=== PATIENT | male | born 1945 | race Two or more races ===

== ENCOUNTER → 2017-03-12 | Emergency (ER) | payer OTHER ==
[~2017-03-12] VITALS: Ht 182.9 cm; Wt 90.7 kg
[~2017-03-12] MED LIST: CASODEX50 MG PO; CHLOROTHIAZIDE500 MG PO; CLARINEX5 MG/TAB PO; RELAGESIC 5001 EACH PO; TESSALON PERLE100 MG PO; TUSSI PRES-B L120 M1 PO; ZIAC 2.5-6.25 M1 TAB PO; ZITHROMAX TRI-500 MG PO
== END | disposition home or self-care (01) ==
LOC: ER 08:41
DX: M94.0 Chondrocostal junction syndrome [Tietze] (principal)

== ENCOUNTER 2017-12-20 08:54 | Outpatient (CLI) | payer OTHER | END 2017-12-20 09:21 | disposition home or self-care (01) | LOC: RAD 08:54 | DX: N20.0 Calculus of kidney (principal); C61 Malignant neoplasm of prostate ==

== ENCOUNTER 2017-12-25 09:10 | Outpatient (CLI) | payer OTHER | END 2017-12-25 09:18 | disposition home or self-care (01) | LOC: NUCLEAR 09:10 | DX: C61 Malignant neoplasm of prostate (principal) | CPT/HCPCS: 78306; A9503 ==

== ENCOUNTER 2018-02-13 08:12 | Outpatient (CLI) | payer OTHER | END 2018-02-13 08:41 | disposition home or self-care (01) | LOC: LAB 08:12 | DX: C61 Malignant neoplasm of prostate (principal); C41.9 Malignant neoplasm of bone and articular cartilage, unspecified; R73.01 Impaired fasting glucose; E78.2 Mixed hyperlipidemia; I11.9 Hypertensive heart disease without heart failure; Z13.1 Encounter for screening for diabetes mellitus; E55.9 Vitamin D deficiency, unspecified; E56.8 Deficiency of other vitamins ==

== ENCOUNTER 2018-02-14 13:34 | Outpatient (CLI) | payer OTHER | END 2018-02-14 14:18 | disposition home or self-care (01) | LOC: NUCLEAR 13:34 | DX: C61 Malignant neoplasm of prostate (principal); M81.0 Age-related osteoporosis without current pathological fracture ==

== ENCOUNTER 2018-04-23 08:50 | Outpatient (CLI) | payer OTHER | END 2018-04-23 09:00 | disposition home or self-care (01) | LOC: SONOGRAMA 08:50 | DX: R10.11 Right upper quadrant pain (principal) ==

== ENCOUNTER 2018-05-12 07:47 | Outpatient (CLI) | payer OTHER | END 2018-05-12 07:55 | disposition home or self-care (01) | LOC: TOM 07:47 | DX: R10.11 Right upper quadrant pain (principal) ==

== ENCOUNTER 2018-05-16 09:07 | Outpatient (CLI) | payer OTHER | END 2018-05-16 13:05 | disposition home or self-care (01) | LOC: LAB 09:07 | DX: C41.9 Malignant neoplasm of bone and articular cartilage, unspecified (principal); I11.9 Hypertensive heart disease without heart failure; E78.49 Other hyperlipidemia ==

== ENCOUNTER 2019-06-25 09:55 | Emergency (ER) | payer OTHER ==
[~2019-06-25] VITALS: Ht 182.9 cm; Wt 90.7 kg
[2019-06-25] MEDS ORDERED: CANDESARTAN CILE8 M1 PO (10:11)
[2019-06-25] MEDS ORDERED: AVAPRO75 MG PO (10:11)
[2019-06-25] MEDS ORDERED: POTASSIUM CITR15 MEQ (10:12)
[2019-06-25] MEDS ORDERED: CENTRUM SILVER1 EAC4 PO (10:12)
[2019-06-25] MEDS ORDERED: CITRACAL + D M1 EACH (10:13)
== END 2019-06-25 11:00 | disposition home or self-care (01) ==
LOC: ER 09:55
DX: S51.822A Laceration with foreign body of left forearm, initial encounter (principal); W22.09XA Striking against other stationary object, initial encounter; Y93.01 Activity, walking, marching and hiking; Y92.018 Other place in single-family (private) house as the place of occurrence of the external cause; Y99.8 Other external cause status

== ENCOUNTER 2019-06-29 11:09 | Emergency (ER) | payer OTHER ==
[~2019-06-29] VITALS: Ht 182.9 cm; Wt 88.5 kg
[~2019-06-29 11:09] MED LIST changes: +AVAPRO75 MG PO; +CANDESARTAN CILE8 M1 PO; +CENTRUM SILVER1 EAC4 PO; +CITRACAL + D M1 EACH; +POTASSIUM CITR15 MEQ
== END 2019-06-29 11:46 | disposition home or self-care (01) ==
LOC: ER 11:09
DX: T81.89XA Other complications of procedures, not elsewhere classified, initial encounter (principal); S51.82 Laceration with foreign body of forearm; W26.8XXS Contact with other sharp object(s), not elsewhere classified, sequela

== ENCOUNTER 2019-07-07 09:52 | Emergency (ER) | payer OTHER ==
[~2019-07-07] VITALS: Ht 182.9 cm; Wt 90.7 kg
== END 2019-07-07 10:48 | disposition home or self-care (01) ==
LOC: ER 09:52
DX: Z48.02 Encounter for removal of sutures (principal)

== ENCOUNTER 2019-11-12 09:46 | Outpatient (CLI) | payer OTHER | END 2019-11-12 09:53 | disposition home or self-care (01) | LOC: RAD 09:46 | PROVIDERS: ATTEND Physical Medicine & Rehabilitation | DX: S62.301A Unspecified fracture of second metacarpal bone, left hand, initial encounter for closed fracture (principal) ==

== ENCOUNTER 2019-12-21 10:34 | Emergency (ER) | payer OTHER ==
[~2019-12-21] VITALS: Ht 182.9 cm; Wt 90.7 kg
[2019-12-21] MEDS ORDERED: CANDESARTAN CILE8 MG PO (12:36)
[2019-12-21] MEDS ORDERED: CANDESARTAN CILE8 MG (12:36)
[2019-12-21] MEDS ORDERED: SKELAXIN800 MG PO (16:15)
[2019-12-21] MEDS ORDERED: ULTRACET PO (16:15)
== END 2019-12-21 16:53 | disposition home or self-care (01) ==
LOC: ER 10:34
DX: S62.33 Displaced fracture of neck of other metacarpal bone (principal); S40.011S Contusion of right shoulder, sequela; X58.XXXS Exposure to other specified factors, sequela

== ENCOUNTER 2019-12-23 12:00 | Outpatient (CLI) | payer OTHER ==
[~2019-12-23 12:00] MED LIST changes: +CANDESARTAN CILE8 MG; +CANDESARTAN CILE8 MG PO; +SKELAXIN800 MG PO; +ULTRACET PO
== END 2019-12-23 12:12 | disposition home or self-care (01) ==
LOC: RAD 12:00
PROVIDERS: ATTEND Orthopaedic Surgery
DX: M54.5 Low back pain (principal); M54.6 Pain in thoracic spine

== ENCOUNTER → 2019-12-25 10:01 | Outpatient (CLI) | payer OTHER | END | disposition home or self-care (01) | LOC: LAB 10:01 | PROVIDERS: ATTEND Orthopaedic Surgery | DX: E88.89 Other specified metabolic disorders (principal); D64.89 Other specified anemias; M06.4 Inflammatory polyarthropathy; E55.9 Vitamin D deficiency, unspecified; M85.88 Other specified disorders of bone density and structure, other site ==

== ENCOUNTER 2019-12-28 08:47 | Outpatient (CLI) | payer OTHER | END 2019-12-28 09:08 | disposition home or self-care (01) | LOC: NUCLEAR 08:47 | PROVIDERS: ATTEND Orthopaedic Surgery | DX: M81.0 Age-related osteoporosis without current pathological fracture (principal); M54.5 Low back pain ==

== ENCOUNTER 2019-12-30 09:36 | Outpatient (CLI) | payer OTHER | END 2019-12-30 09:42 | disposition home or self-care (01) | LOC: LAB 09:36 | PROVIDERS: ATTEND Orthopaedic Surgery | DX: E56.1 Deficiency of vitamin K (principal); M06.4 Inflammatory polyarthropathy; D64.89 Other specified anemias; N18.1 Chronic kidney disease, stage 1; C61 Malignant neoplasm of prostate; E55.9 Vitamin D deficiency, unspecified; M81.0 Age-related osteoporosis without current pathological fracture; M10.9 Gout, unspecified; D63.8 Anemia in other chronic diseases classified elsewhere ==

== ENCOUNTER 2019-12-30 11:26 | Outpatient (CLI) | payer OTHER | END 2019-12-30 11:33 | disposition home or self-care (01) | LOC: RAD 11:26 | PROVIDERS: ATTEND Orthopaedic Surgery | DX: M89.8X4 Other specified disorders of bone, hand (principal); M79.642 Pain in left hand; M79.641 Pain in right hand; M25.542 Pain in joints of left hand; M25.541 Pain in joints of right hand; M18.11 Unilateral primary osteoarthritis of first carpometacarpal joint, right hand ==

== ENCOUNTER 2020-03-23 08:15 | Outpatient (CLI) | payer OTHER | END 2020-03-23 08:27 | disposition home or self-care (01) | LOC: NUCLEAR 08:15 | DX: C61 Malignant neoplasm of prostate (principal); M54.5 Low back pain | CPT/HCPCS: 78306; A9503 ==

== ENCOUNTER 2020-03-23 09:15 | Outpatient (CLI) | payer OTHER | END 2020-03-23 09:21 | disposition home or self-care (01) | LOC: LAB 09:15 | DX: C61 Malignant neoplasm of prostate (principal); C41.9 Malignant neoplasm of bone and articular cartilage, unspecified; M81.0 Age-related osteoporosis without current pathological fracture; E55.9 Vitamin D deficiency, unspecified; D63.0 Anemia in neoplastic disease; N39.0 Urinary tract infection, site not specified; D47.2 Monoclonal gammopathy; C79.51 Secondary malignant neoplasm of bone ==

== ENCOUNTER 2020-03-25 10:42 | Outpatient (CLI) | payer OTHER | END 2020-03-25 10:48 | disposition home or self-care (01) | LOC: LAB 10:42 | PROVIDERS: ATTEND General Practice | DX: E56.8 Deficiency of other vitamins (principal); E78.2 Mixed hyperlipidemia; I11.9 Hypertensive heart disease without heart failure; Z13.1 Encounter for screening for diabetes mellitus; E55.9 Vitamin D deficiency, unspecified; R73.01 Impaired fasting glucose ==

== ENCOUNTER 2020-04-07 08:45 | Outpatient (CLI) | payer OTHER | END 2020-04-07 18:50 | disposition home or self-care (01) | LOC: LAB 08:45 | DX: E03.8 Other specified hypothyroidism (principal); R73.02 Impaired glucose tolerance (oral); E78.2 Mixed hyperlipidemia; I11.9 Hypertensive heart disease without heart failure ==

== ENCOUNTER → 2020-06-23 07:25 | Outpatient (CLI) | payer OTHER | END | disposition home or self-care (01) | LOC: LAB 07:25 | PROVIDERS: ATTEND General Practice | DX: R73.01 Impaired fasting glucose (principal); Z68.27 Body mass index [BMI] 27.0-27.9, adult; E78.2 Mixed hyperlipidemia; I11.9 Hypertensive heart disease without heart failure; Z13.1 Encounter for screening for diabetes mellitus; E55.9 Vitamin D deficiency, unspecified; E56.8 Deficiency of other vitamins; E66.3 Overweight ==

== ENCOUNTER 2021-11-17 09:17 | Outpatient (CLI) | payer OTHER | END 2021-11-17 09:18 | disposition home or self-care (01) | LOC: NUCLEAR 09:17 | PROVIDERS: ATTEND General Practice | DX: M85.80 Other specified disorders of bone density and structure, unspecified site (principal); Z68.27 Body mass index [BMI] 27.0-27.9, adult; R73.01 Impaired fasting glucose; E78.2 Mixed hyperlipidemia; I11.9 Hypertensive heart disease without heart failure; Z13.1 Encounter for screening for diabetes mellitus; E55.9 Vitamin D deficiency, unspecified; E66.3 Overweight; Z88.6 Allergy status to analgesic agent; Z88.8 Allergy status to other drugs, medicaments and biological substances ==

== ENCOUNTER 2022-04-04 05:38 | Inpatient (IN) | payer OTHER ==
[~2022-04-04] VITALS: Ht 182.9 cm; Wt 87.5 kg
[2022-04-04] MEDS ORDERED: ATORVASTATIN CA20 MG PO (05:44)
--- NOTE | 2022-04-04 05:45 | NUR ---
PACIENTE ALERTA Y ORIENTADO X3. REFIERE DOLOR EN EL LADO CELI DEL PECHO QUE LE COMENZO DESDE FRANCIA EN LA TARDE.
--- NOTE | 2022-04-04 05:55 | NUR ---
SE PRESENTA EKG A DR. WESTON Y EL MISMO INDICA COLOR EL PACIENTE EN CRITICO
--- NOTE | 2022-04-04 07:35 | NUR ---
SE RECIBE PTE MASCULINO DE 77 YRS ALERTA CONCIENTE Y TRANQUILO. PTE SE MANTIENE EN AREA DE ICU-2 CONCENCATADO A MONITOR CARDIACO Y OXIMENTRIA, PTE EVALUADO POR EL TRISTA MARTINEZIE ORDENA TRATAMIENTO LA CUAL SE EJECUTA POR MS. AMADO BABIN .SE MANTIENE BAJO OBSERVACION POR CAMBIOS.
--- NOTE | 2022-04-04 07:40 | NUR ---
SE LE NOTIFICA A EL DR, TRISTA LA PRECION DE EL [id number] LA CUAL ORDENA TRIDIL 50/250 A 3 ML HRS Y BRILINDA 90 MH PO KRISTEN LA CUAL SE EJECUTA SE OBSERVA POR CAMBIOS.
--- NOTE | 2022-04-04 11:10 | NUR ---
SE LE JACQUI 2DA MUESTRA DE TROPONINA Y SE CONSULTA CON EL DR.REYNEYRO CARR Y . SE LE ORDENA DIETA LOW SALT POR ORDEN DE LA DRA. VÁSQUEZ. SE ,MANTIENE BAJO OBSERVACION.
--- NOTE | 2022-04-04 13:30 | NUR ---
SE LLEVA A PTE A REALIZAR ESTUDIO DE ECHOCARDIOGRAMA DOPPLES.EN SUE CON MONITOR CARDICAO Y OXIMENTRIA.
--- NOTE | 2022-04-04 15:19 | NUR ---
3:00PM: SE RECIBE PACIENTE DEL TURNO ANTERIOR, EL MISMO SE ENCUENTRA ALERTA Y ORIENTADO X3, UBICADO EN CAMA CON BARANDAS ELEVADAS POR PRECAUCION A CAIDAS, CONECTADO A MONITOR CARDIACO Y OXIMETRIA DE PULSO. SE OBSERVA PACIENTE CANALIZADO EN BRAZO CELI CON ANGIO # 18, EL MISMO SE ENCUENTRA PATENTE, MJ DE EDEMA Y ERITEMA. SE OBSERVA TRIDIL 50MG/250ML DW5%, BAJANDO A 3ML/HR. Y 0.9%NSS, BAJANDO A 100ML/HR. SE OBSREVA PACIENTE CON BUEN PATRON RESPIRATORIO, EL MISMO VEBRALIZA AL MOMENTO NO TENER DOLOR DE PECHO. SE MANTIENE PACIENTE BAJO OBSERVACION POR ESEPERA A CONSULTA CON CARDIOLOGO E INTERNISTA.
--- NOTE | 2022-04-04 15:39 | NUR ---
DRA VÁSQUEZ ORDENA VERBALMENTE REPETIR MUESTRA DE TROPONINA. SE EJECUTA ORDEN,
[2022-04-05] MEDS ORDERED: COMBIGAN EYE DRO5 ML (13:20)
[2022-04-05] MEDS ORDERED: EZETIMIBE10 MG (13:22)
== END 2022-04-06 21:49 | disposition home or self-care (01) | DRG 311 ==
LOC: ER 05:38 → SEC-K 16:50 → MEDI 16:50 → SEC-K 17:40 → MEDI 04-06 08:44
PROVIDERS: ADMIT Internal Medicine; ATTEND Internal Medicine
PROC: B24BZZZ Ultrasonography of Heart with Aorta (ICD-10-PCS; principal; 2022-04-04)
PROC: C23GYZZ Positron Emission Tomographic (PET) Imaging of Myocardium using Other Radionuclide (ICD-10-PCS; 2022-04-04)
PROC: 4A12X4Z Monitoring of Cardiac Electrical Activity, External Approach (ICD-10-PCS; 2022-04-06)
DX: I20.0 Unstable angina (principal); I11.0 Hypertensive heart disease with heart failure; I50.9 Heart failure, unspecified; Z20.822 Contact with and (suspected) exposure to COVID-19

== ENCOUNTER → 2022-11-19 | Outpatient (CLI) | payer OTHER ==
[~2022-11-19] MED LIST changes: +ATORVASTATIN CA20 MG PO; +COMBIGAN EYE DRO5 ML; +EZETIMIBE10 MG
== END | disposition home or self-care (01) ==
LOC: RAD 09:35
DX: M25.572 Pain in left ankle and joints of left foot (principal)

== ENCOUNTER 2022-12-28 07:58 | Outpatient (CLI) | payer OTHER | END 2022-12-28 08:11 | disposition home or self-care (01) | LOC: SONOGRAMA 07:58 | PROVIDERS: ATTEND Surgery | DX: C43.9 Malignant melanoma of skin, unspecified (principal); Z88.6 Allergy status to analgesic agent ==

== ENCOUNTER 2023-01-04 08:06 | Outpatient (CLI) | payer OTHER | END 2023-01-04 08:07 | disposition home or self-care (01) | LOC: NUCLEAR 08:06 | PROVIDERS: ATTEND Surgery | DX: C43.9 Malignant melanoma of skin, unspecified (principal) | CPT/HCPCS: 78815; A9552 ==

== ENCOUNTER 2023-01-23 09:59 | Outpatient (CLI) | payer OTHER | END 2023-01-23 10:04 | disposition home or self-care (01) | LOC: RAD 09:59 | PROVIDERS: ATTEND Surgery | DX: C49.22 Malignant neoplasm of connective and soft tissue of left lower limb, including hip (principal); Z88.6 Allergy status to analgesic agent ==

== ENCOUNTER 2023-03-22 09:13 | Outpatient (CLI) | payer OTHER | END 2023-03-22 09:21 | disposition home or self-care (01) | LOC: SONOGRAMA 09:13 | PROVIDERS: ATTEND Surgery | DX: R59.0 Localized enlarged lymph nodes (principal) ==

== ENCOUNTER 2023-12-10 07:49 | Outpatient (CLI) | payer OTHER | END 2023-12-10 07:50 | disposition home or self-care (01) | LOC: NUCLEAR 07:49 | PROVIDERS: ATTEND Surgery | DX: C49.22 Malignant neoplasm of connective and soft tissue of left lower limb, including hip (principal) | CPT/HCPCS: 78816; A9552 ==

== ENCOUNTER 2024-02-21 08:01 | Outpatient (CLI) | payer OTHER | END 2024-02-21 08:11 | disposition home or self-care (01) | LOC: SONOGRAMA 08:01 | DX: R10.9 Unspecified abdominal pain (principal) ==

== ENCOUNTER 2024-05-29 09:39 | Outpatient (CLI) | payer OTHER ==
[2024-05-29 10:38] LABS: CREATININE SERUM 0.86 mg/dL (0.70-1.30)
== END 2024-05-29 09:45 | disposition home or self-care (01) ==
LOC: LAB 09:39
PROVIDERS: ATTEND Radiology Diagnostic Radiology
DX: R52 Pain, unspecified (principal); R30.1 Vesical tenesmus

== ENCOUNTER 2024-06-01 07:22 | Outpatient (CLI) | payer OTHER | END 2024-06-01 07:26 | disposition home or self-care (01) | LOC: TOM 07:22 | PROVIDERS: ATTEND Internal Medicine | DX: R52 Pain, unspecified (principal); R30.1 Vesical tenesmus | CPT/HCPCS: 74177; Q9965 ==